=== PATIENT | male | born 1955 | race Caucasian/White ===

== ENCOUNTER 2021-04-17 05:23 | Day surgery (SDC) | payer MEDICARE, OTHER ==
[~2021-04-17] VITALS: Ht 177.8 cm; Wt 83.8 kg
[~2021-04-17 05:23] MED LIST: DOCU-192 PO; KRIL500C PO; MAGN250T8 PO; MULT-257 PO; OMEP10CA2 PO; OMEP20TA62 PO; ONDA8TAB16 SL; OXYC10TA6 PO; POTA20TA89 PO
[2021-04-17 06:21] VITALS: BP 114/76
[2021-04-17] MEDS ORDERED: CHLORHEXIDINE 15 ML UDC ONE (06:26)
[2021-04-17] MEDS ORDERED: CHLORHEXIDINE 15 ML UDC PO ONE (06:30)
[2021-04-17] MEDS ORDERED: LACTATED RINGERS 1,000 ML IV SCH (06:30)
[2021-04-17] MEDS ORDERED: OMNIPAQUE 350 MG/ML, 50 ML BOTTLE ONE (07:05)
[2021-04-17] MEDS ORDERED: NEOSTIGMINE 1 MG/ML, 10ML ONE (07:30)
[2021-04-17] MEDS ORDERED: hydrALAzine 20 MG/ML, 1ML IV PRN (07:30)
[2021-04-17] MEDS ORDERED: morphine SULFATE 10 MG/ML, 1ML IVPush PRN (07:30)
[2021-04-17] MEDS ORDERED: ACETAMINOPHEN 325 MG TABLET PO PRN (07:30)
[2021-04-17] MEDS ORDERED: ONDANSETRON 2MG/ML, 2ML ONE (07:30)
[2021-04-17] MEDS ORDERED: HYDROmorphone 1 MG/ML, 1ML INJ IVPush PRN (07:30)
[2021-04-17] MEDS ORDERED: LABETALOL 5MG/ML, 20ML IV PRN (07:30)
[2021-04-17] MEDS ORDERED: ROCURONIUM 10 MG/ML,10ML ONE (07:30)
[2021-04-17] MEDS ORDERED: PROPOFOL 10 MG/ML, 20ML ONE (07:30)
[2021-04-17] MEDS ORDERED: CEFAZOLIN 1,000 MG ONE (07:30)
[2021-04-17] MEDS ORDERED: GLYCOPYRROLATE 0.2MG/1ML, 5ML ONE (07:30)
[2021-04-17] MEDS ORDERED: ONDANSETRON 2MG/ML, 2ML IVPush PRN (07:30)
[2021-04-17] MEDS ORDERED: DEXAMETHASONE 4 MG/ML, 1ML ONE (07:30)
[2021-04-17] MEDS ORDERED: OXYcodone 5 MG/5 ML ORAL.SOL UDC PO PRN (07:30)
[2021-04-17] MEDS ORDERED: MEPERIDINE/PF 25MG/0.5ML IVPush PRN (07:30)
[2021-04-17] MEDS: FENTANYL PF 100 MCG/2ML IV PRN ×2 (08:46→08:51)
[2021-04-17] MEDS ORDERED: FENTANYL PF 100 MCG/2ML ONE (08:46)
[2021-04-17] MEDS ORDERED: OXYcodone 5 MG/5 ML ORAL.SOL UDC ONE (09:02)
[2021-04-17] MEDS ORDERED: hydrALAzine 20 MG/ML, 1ML ONE (09:22)
== END 2021-04-17 12:52 | disposition home or self-care (01) ==
LOC: OUT 05:23
PROVIDERS: ATTEND Internal Medicine Gastroenterology
DX: Z46.59 Encounter for fitting and adjustment of other gastrointestinal appliance and device (principal); C22.1 Intrahepatic bile duct carcinoma; K80.51 Calculus of bile duct without cholangitis or cholecystitis with obstruction; Z79.891 Long term (current) use of opiate analgesic; Z79.899 Other long term (current) drug therapy; Z87.891 Personal history of nicotine dependence
CPT/HCPCS: 43264; 43276; 74328; 93005; C1769; C1876; J0360; J0690; J1100; J2405; J2704; J2710; J3010; J7120; Q9967